=== PATIENT | male | born 1940 | race Caucasian/White ===

== ENCOUNTER 2016-10-17 00:40 | Day surgery (SDC) | payer MEDICARE, OTHER ==
[2016-10-17] VITALS (8 sets, daily range): BP systolic 114–135; BP diastolic 74–85; PULSE 64–78; RESP 14–20; O2SAT 94–97
[~2016-10-17] VITALS: Ht 179.1 cm; Wt 94.4 kg
[~2016-10-17 00:40] MED LIST: DOXA4TAB2 PO; FINA5TAB2 PO; ZLP10T PO
[2016-10-17] MEDS ORDERED: 0.9% Sodium Chloride 1,000 ML IV SCH ×2 (07:15→11:33)
[2016-10-17] MEDS ORDERED: Vancomycin Inj 1,000 MG in IV Premix 1 EACH IV ONE (07:20)
[2016-10-17 09:26] LABS: BASOPHILS % (AUTO) 0.5 % (0-3); EOSINOPHILS % (AUTO) 4.7 % (0-5); MONOCYTES % (AUTO) 13.2 % (4-12); Mean Corpuscular Hemoglobin 30.5 pg (27.0-35.0); Mean Corpuscular Volume 89.9 fL (81-100); Platelet Count 246 bil/L (150-400)
[2016-10-17 09:41] LABS: INR 0.94 ratio
[2016-10-17] MEDS ORDERED: Bupivacaine-MPF 0.5% 30 mL Inj ONE (09:52)
[2016-10-17] MEDS ORDERED: Vancomycin 1,000 mg Inj ONE (09:52)
[2016-10-17] MEDS ORDERED: 0.9% Sodium Chloride 250 ML ONE (09:52)
[2016-10-17] MEDS ORDERED: Water for Injection 50 ML IV ONE (09:52)
[2016-10-17] MEDS ORDERED: Heparin 5,000 Units/500 mL NS Premix IV ONE (10:32)
[2016-10-17] MEDS ORDERED: fentaNYL-PF 50 mCg/mL 2 mL Inj ONE (10:33)
[2016-10-17] MEDS ORDERED: HYDROcodone-APAP 5-325 mg Tablet PO PRN (11:35)
[2016-10-17] MEDS ORDERED: Ondansetron 2 mg/mL 2 mL Inj IVPUSH PRN (11:35)
--- NOTE | 2016-10-17 11:52 | NUR ---
Returned from label folder at 1140 - 2 hour bedrest planned. Ice on incision patient has no pain.
--- NOTE | 2016-10-17 12:36 | OP ---
[address] [address] OPERATIVE REPORT PATIENT: FATOU SEALS : 1940 MR#: [id number] ADMIT: 10/17/2016 JOB ID: [id number] DATE OF SURGERY: 10/17/2016 PREOPERATIVE DIAGNOSIS(ES): Pacemaker battery depletion. POSTOPERATIVE DIAGNOSIS(ES): Pacemaker battery depletion. PROCEDURES PERFORMED: Dual-chamber pacemaker generator replacement. SURGEON: Terminal System Operator: Regis Vaughn MD CLINICAL PHYSICIAN ASSISTANT: Martir Kaminski. IMPLANTED DEVICE: [employer] Accolade pulse generator, model L301, serial number [id number]. EXPLANTED DEVICE: Guidant model 1298, serial number [id number]. CHRONIC DEVICES: 1. Right atrial lead: [employer] model 423-03, serial number [id number]. 2. RV lead: [employer] model 430-07, serial number [id number]. ANESTHESIA: Bolus dosing of Versed and fentanyl was utilized for an appropriate level of sedation. 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 He has a dual-chamber pacemaker in place that has reached [facility]. After discussion of the risks and benefits of generator replacement, he opted to proceed. PROCEDURAL DESCRIPTION: Following informed consent, the patient was taken to the EP laboratory in a fasting, nonsedated state, where he was prepped and draped in the usual sterile fashion. The left infraclavicular surgical scar was infiltrated with 40 mL of a 50/50 mixture of bupivacaine and lidocaine. Once adequate anesthesia had been achieved, a 3 cm incision was performed 2 cm below the clavicle and dissection was carried down to the capsule and the leads and generator were freed loose of adhesions. The leads were disconnected from the generator, tested through the PSA, and showed excellent lead parameters. Of note, the RV lead when removed from the header, the connection between the ring electrode and the tip electrode became loose but was easily reseated and tested fine. Given his minimal pacing, I decided to move forward with generator replacement alone and not new lead placement. The pocket was copiously irrigated with antibiotic solution. The two chronic leads were connected to a new generator. The entire system was replaced into the capsule. The incision was then closed with running layers of absorbable suture. The wound was dressed with adhesive and a small dressing. At the end of the procedure, the needle, sponge, and instrument counts were correct. COMPLICATIONS: None. ESTIMATED BLOOD LOSS: Negligible. DEVICE MEASURED DATA: 1. Right atrial lead: 5.5 mV, 0.5 V at 0.4 msec, 590 ohms. 2. RV lead: 11.6 mV, 1 V at 0.4 msec, 479 ohms. FINAL PROGRAM PARAMETERS: DDD 50-130 beats per minute. IMPRESSION: Successful dual-chamber pacemaker generator replacement. PLAN: 1. Recovery and discharge from the [facility]. 2. One week Device Clinic. 3. Six weeks with Alfred Hidalgo PA-C. 4. Doxycycline 100 mg p.o. daily x1 week. ATTENDING STATEMENT: Regis Vaughn MD, electrophysiology attending, was present for and supervised/performed all aspects of this procedure.
--- NOTE | 2016-10-17 14:00 | NUR ---
Discharge instructions reviewed with patient and spouse. I did fax patient's new rx for doxycycline and he knows to [facility] on his way home.Pacemaker site dry and intact.pt ambulatory without feeling lightheaded or dizzy.Pt sent home ambulatory.
== END 2016-10-17 23:59 | disposition home or self-care (01) ==
LOC: SOUO 00:40
PROVIDERS: ATTEND Internal Medicine Cardiovascular Disease
DX: Z45.010 Encounter for checking and testing of cardiac pacemaker pulse generator [battery] (principal); I44.2 Atrioventricular block, complete; N40.0 Benign prostatic hyperplasia without lower urinary tract symptoms
CPT/HCPCS: 33228; 36415; 80048; 85025; 85610; 99152; 99153; C1785; J1644; J2250; J3010; J3370; J7050